=== PATIENT | female | born 1965 | race American Indian/Alaskan Native ===

== ENCOUNTER 2017-07-25 05:54 | Observation (INO) | payer BC ==
--- NOTE | 2017-07-25 06:33 | ED PDOC ---
Arrival/HPI - General Chief Complaint: Chest Pain Time Seen by Provider: 07/25/17 06:24 Historian: Patient - History of Present Illness Narrative History of Present Illness (Text): 07/25/17 06:30 Pt. to emergency department Past medical history Hypertension with complaint of intermittent episodes of chest discomfort with and w/o exertion for the past 2 weeks.No shortness of breath.Pt. this am with recurrent episode prompting her to come to the emergency room.Curently asymptomatic. Past Medical History - Provider Review Nursing Documentation Reviewed: Yes - Travel History Have you recently traveled outside [place] w/in the past 3 mons?: No - Infectious Disease Hx of Infectious Diseases: None - Tetanus Immunization Tetanus Immunization: Up to Date - Reproductive Menopause: No - Cardiac Hx Hypertension: Yes - Psychiatric Hx Substance Use: No - Surgical History Other/Comment: right breast cyst removal - Suicidal Assessment Feels Threatened In Home Enviroment: No Family/Social History - Physician Review Nursing Documentation Reviewed: Yes Family/Social History: CAD/PR Smoking Status: Never Smoked Hx Alcohol Use: Yes Frequency of alcohol use: Socially Hx Substance Use: No Hx Substance Use Treatment: No Allergies/Home Meds Allergies/Adverse Reactions: Allergies No Known Allergies Allergy (Verified 07/25/17 06:20) Home Medications: Home Meds Medication Instructions Recorded Confirmed No Known Home Med 12/06/12 12/06/12 Review of Systems - Review of Systems Constitutional: Normal Eyes: Normal ENT: Normal Respiratory: Normal Cardiovascular: Chest Pain Gastrointestinal: Normal Genitourinary Female: Normal Musculoskeletal: Normal Skin: Normal Neurological: Normal Endocrine: Normal Hemo/Lymphatic: Normal Psychiatric: Normal Physical Exam Vital Signs Temp Pulse Resp BP Pulse Ox 07/25/17 06:07 98.2 F 63 18 162/89 H 97 07/25/17 06:00 98.3 F 63 16 162/89 H 100 Temperature: Afebrile Blood Pressure: Normal Pulse: Regular Respiratory Rate: Normal Appearance: Positive for: Well-Appearing, Non-Toxic, Comfortable Pain Distress: None Mental Status: Positive for: Alert and Oriented X 3 - Systems Exam Head: Present: Atraumatic, Normocephalic Pupils: Present: PERRL Extroacular Muscles: Present: EOMI Conjunctiva: Present: Normal Mouth: Present: Moist Mucous Membranes Neck: Present: Normal Range of Motion Respiratory/Chest: Present: Clear to Auscultation, Good Air Exchange. No: Respiratory Distress, Accessory Muscle Use Cardiovascular: Present: Regular Rate and Rhythm, Normal S1, S2. No: Murmurs Abdomen: Present: Normal Bowel Sounds. No: Tenderness, Distention, Peritoneal Signs Back: Present: Normal Inspection Upper Extremity: Present: Normal Inspection. No: Cyanosis, Edema Lower Extremity: Present: Normal Inspection. No: Edema Neurological: Present: GCS=15, CN II-XII Intact, Speech Normal, Motor Func Grossly Intact, Normal Sensory Function Skin: Present: Warm, Dry, Normal Color. No: Rashes Psychiatric: Present: Alert, Oriented x 3, Normal Insight, Normal Concentration Medical Decision Making - RAD Interpretation Radiology Orders: 07/25/17 06:35 CHEST PORTABLE [RAD] Stat - EKG Interpretation EKG Interpretation (Text): 07/25/17 06:33 EKG- Sinus bradycardia@59,LVH,NSSTT changes Interpreted by ED Physician: Yes - Medication Orders Current Medication Orders: Discontinued Medications Aspirin (Aspirin) 325 mg PO ONCE STA Stop: 07/25/17 06:35 - Transfer of Care Patient signed out to Dr:Hugo Salvador Pending Labs:: labs/CXR/reassess/final disposition Disposition/Present on Arrival - Present on Arrival Any Indicators Present on Arrival: No History of DVT/PE: No History of Uncontrolled Diabetes: No Urinary Catheter: No History of Decub. Ulcer: No History Surgical Site Infection Following: None - Disposition Have Diagnosis and Disposition been Completed?: No Diagnosis: Chest pain Disposition Time: 07:00 Condition: STABLE Discharge Instructions (ExitCare): Chest Pain (ED) Forms: [employer] (Slovak)
[2017-07-25 07:15] LABS: MEAN CELL VOLUME 90.4 fl (80.0-105.0); MEAN CORPUSCULAR HEMOGLOBIN 30.5 pg (25.0-35.0); MEAN CORPUSCULAR HGB CONC 33.7 g/dl (31.0-37.0); MEAN PLATELET VOLUME 9.6 fl (7.0-11.0); RED CELL DISTRIBUTION WIDTH 12.7 % (11.5-14.5); WHITE BLOOD COUNT 7.4 10^3/ul (4.5-11.0)
[2017-07-25 07:28] LABS: INR 1.02 (0.93-1.08)
[2017-07-25 07:29] LABS: ALB/GLOB RATIO 1.1 (1.1-1.8); ALKALINE PHOSPHATASE 93 U/L (38-126); ALT/SGPT 40 U/L (7-56); AST/SGOT 38 U/L (14-36); BILIRUBIN,TOTAL 0.6 mg/dL (0.2-1.3); BLOOD UREA NITROGEN 16 mg/dL (7-21); CALCIUM 9.4 mg/dL (8.4-10.5); CARBON DIOXIDE 28 mmol/L (21-33); CHLORIDE 107 mmol/L (98-107); GFR AFRICAN-AMERICAN > 60; GLUCOSE,RANDOM 106 mg/dL (70-110); POTASSIUM 3.9 mmol/L (3.6-5.0); SODIUM 143 mmol/L (132-148); TOTAL PROTEIN 7.3 g/dL (5.8-8.3)
[2017-07-25 07:40] LABS: TROPONIN I < 0.01 ng/mL
--- NOTE | 2017-07-25 08:51 | ED PDOC ---
Physical Exam Vital Signs Temp Pulse Resp BP Pulse Ox 07/25/17 08:05 76 20 155/87 H 100 07/25/17 07:47 63 18 109/66 100 07/25/17 06:07 98.2 F 63 18 162/89 H 97 07/25/17 06:00 98.3 F 63 16 162/89 H 100 Medical Decision Making ED Course and Treatment: 07/25/17 08:50 Case was endorsed to me by Dr. Workman. Patient's came in with complaints of chest discomfort. Lab results were pending and are negative. Patient is currently pain free. The case was discussed with Dr. pineda and patient was accepted for admission. 07/25/17 12:20 - Lab Interpretations Lab Results: 07/25/17 07:08 07/25/17 07:08 Lab Results 07/25/17 07:08: WBC 7.4, RBC 3.87, Hgb 11.8 L, Hct 35.0 L, MCV 90.4, MCH 30.5, MCHC 33.7, RDW 12.7, Plt Count 256, MPV 9.6 07/25/17 07:08: Sodium 143, Potassium 3.9, Chloride 107, Carbon Dioxide 28, Anion Gap 12, BUN 16, Creatinine 1.1, Est GFR ( Amer) > 60, Est GFR (Non- Af Amer) 53, Random Glucose 106, Calcium 9.4, Total Bilirubin 0.6, AST 38 H, ALT 40, Alkaline Phosphatase 93, Lactate Dehydrogenase 550, Total Creatine Kinase 175, Troponin I < 0.01, Total Protein 7.3, Albumin 3.9, Globulin 3.5, Albumin/Globulin Ratio 1.1 07/25/17 07:08: PT 11.2, INR 1.02, APTT 30.0 I have reviewed the lab results: Yes - RAD Interpretation Radiology Orders: 07/25/17 06:35 CHEST 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 I have reviewed the chart and agree that the record accurately reflects my personal performance of the history, physical exam, medical decision making, and the department course for this patient. I have also personally directed, reviewed, and agree with the discharge instructions and disposition. Disposition/Present on Arrival - Present on Arrival Any Indicators Present on Arrival: No History of DVT/PE: No History of Uncontrolled Diabetes: No Urinary Catheter: No History of Decub. Ulcer: No History Surgical Site Infection Following: None - Disposition Have Diagnosis and Disposition been Completed?: Yes Diagnosis: Chest pain Disposition: HOSPITALIZED Disposition Time: 10:00 Patient Problems: Current Active Problems Problem Status Onset Chest pain Acute Condition: STABLE
--- NOTE | 2017-07-25 09:05 | RAD ---
HISTORY: Chest pain COMPARISON: No prior. FINDINGS: LUNGS: The lungs are well inflated and clear. PLEURA: No significant pleural effusion identified, no pneumothorax apparent. CARDIOVASCULAR: Normal. OSSEOUS STRUCTURES: No significant abnormalities. VISUALIZED UPPER ABDOMEN: Normal. OTHER FINDINGS: None. IMPRESSION: No active pulmonary disease.
--- NOTE | 2017-07-25 09:41 | CARD ---
APPROVED REPORT EKG Measurement Heart [id number] MA [id number] <Conclusion> Sinus bradycardia (59 BPM) Voltage criteria for left ventricular hypertrophy LAD
[2017-07-25 10:15] VITALS: RESP 18; O2SAT 99
[2017-07-25 12:53] LABS: CHOLESTEROL 187 mg/dL (130-200)
[2017-07-25 13:07] LABS: TROPONIN I < 0.01 ng/mL
[2017-07-25 13:12] LABS: FREE T4 0.9 ng/dL (0.78-2.19)
[2017-07-25 13:21] VITALS: BMI 36.7
[2017-07-25] MEDS ORDERED: Influenza Vaccine 60 mcg/0.5 mL SYR (4YR UP) IM ONE (13:21)
[2017-07-25] MEDS ORDERED: Pneumococcal 23-Valent Vaccine IM ONE (13:21)
[2017-07-25 13:26] LABS: THYROID STIMULATING HORMONE 1.06 mIU/mL (0.46-4.68)
--- NOTE | 2017-07-25 13:29 | HP ---
HISTORY OF PRESENT ILLNESS: The patient is a 59 years old, states she is having intermittent left-sided chest pain then goes through her chest, going to her left arm and got worse this morning, so she came to emergency room for further evaluation. Denies any nausea or vomiting. No history of fever. No chills. No cough. No congestion. No dizziness. No diaphoresis. Had no relationship with food intake or exertion. PAST MEDICAL HISTORY: Significant for hypertension, states that blood pressure is usually runs on the high side. ALLERGIES: SHE IS NOT ALLERGIC TO ANY MEDICATION. MEDICATIONS AT HOME: She is on telmisartan 80 mg daily, amlodipine 5 mg daily. SOCIAL HISTORY: Denies smoking. Socially drinks only. REVIEW OF SYSTEMS: Not significant. PHYSICAL EXAMINATION: GENERAL: She is awake, alert, oriented, and communicative. VITAL SIGNS: She is afebrile, pulse 58, respirations 18, blood pressure 164/98. LUNGS: Bilateral fair airflow. No rhonchi or crackles. HEART: S1 and S2 audible. ABDOMEN: Soft. Nontender. No rebound. No guarding. NEUROLOGIC: The patient is awake, alert, oriented, and communicative. Moves all extremities. No leg edema. LABORATORY DATA: WBC 7.4, hemoglobin 11.8, hematocrit 35, platelet of 256. PT 11.2, INR 1.02, PTT 30. Chemistry: Sodium 143, potassium 3.9, chloride 107, CO2 of 28, BUN 16, creatinine 1.1, blood sugar of 106. LFTs are within normal limit. X-ray of chest is unremarkable. EKG shows sinus tachycardia and left ventricular hypertrophy. ASSESSMENT: 1. Chest pain, seems to be noncardiac. 2. Hypertension, uncontrolled. 3. Overweight. PLAN: We will follow up her troponin and start her on aspirin, give her dose of Protonix. Dr. Roca has been consulted to further evaluate. The patient does have risk factor. We will follow up her troponin. If the patient remains stable and 3 sets of troponin negative, she can be discharge home later on today or tomorrow morning depending on Cardiology recommendation. pt was seen by Dr roca who schedualed stress test as out pt so pt is being dc today Deandre Estrada MD MTDD
[2017-07-25 18:12] VITALS: BP 129/74; PULSE 62; TEMP 98.6
[2017-07-26] MEDS ORDERED: Pantoprazole 40 mg EC Tab PO SCH (06:30)
--- NOTE | 2017-07-26 08:10 | CON ---
DATE: 07/25/2017 CARDIOLOGY CONSULTATION HISTORY: The patient is a 51-year-old woman who presents with atypical chest pain with intermittent left arm discomfort. The symptoms are related to her exertion and it can occur at rest. There was no shortness of breath noted. The patient's past medical history includes history of hypertension. No diabetes mellitus. No previous cardiac history. The patient has a strong family history with a father with 4 myocardial infarctions in the past as well as a mother with CAD. SOCIAL HISTORY: The patient does not smoke. 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 REVIEW OF SYSTEMS: A 14-point review of systems reviewed in detail. No cardiac symptomatology is elicited in addition to what was mentioned above. PHYSICAL EXAMINATION: VITAL SIGNS: Blood pressure 153/87, heart rate in the 60s. NECK: Negative JVD. LUNGS: Without rales. HEART: S1, S2. EXTREMITIES: Without edema. EKG is unremarkable. The first troponin is negative. Hemoglobin is 11.8. IMPRESSION: 1. Atypical chest pain. 2. No evidence for acute coronary syndrome. 3. Hypertension. 4. Anemia. 5. Strong family history for coronary artery disease. PLAN: Given these findings, we will obtain a stat troponin. If her troponin is negative, the patient can be discharged and I will proceed with an outpatient stress test this week. Ayden Roca MD
== END 2017-07-25 19:00 | disposition home or self-care (01) ==
LOC: ED 05:54 → ERH 08:50 → 2RNO 11:00
PROVIDERS: ADMIT Internal Medicine; ATTEND Internal Medicine
DX: R07.89 Other chest pain (principal); I10 Essential (primary) hypertension; D64.9 Anemia, unspecified; E66.3 Overweight; Z68.36 Body mass index [BMI] 36.0-36.9, adult; Z79.899 Other long term (current) drug therapy; Z82.49 Family history of ischemic heart disease and other diseases of the circulatory system
CPT/HCPCS: 71010; 80053; 80061; 82550; 83615; 84439; 84443; 84484; 85027; 85610; 85730; 93005; 99285; G0378